=== PATIENT | female | born 1970 | race American Indian/Alaskan Native ===

== ENCOUNTER 2018-07-07 11:00 | Outpatient (CLI) | payer BC | END 2018-07-07 11:01 | disposition home or self-care (01) | LOC: SLR 11:00 | PROVIDERS: ATTEND Otolaryngology | DX: G47.33 Obstructive sleep apnea (adult) (pediatric) (principal); R40.0 Somnolence; R06.83 Snoring | CPT/HCPCS: G0399 ==

== ENCOUNTER 2018-07-21 11:00 | Outpatient (CLI) | payer BC | END 2018-07-21 11:01 | disposition home or self-care (01) | LOC: SLR 11:00 | PROVIDERS: ATTEND Otolaryngology | DX: G47.33 Obstructive sleep apnea (adult) (pediatric) (principal); R40.0 Somnolence; R06.83 Snoring; E66.9 Obesity, unspecified | CPT/HCPCS: 95811 ==